=== PATIENT | female | born 1940 | race Caucasian/White ===

== ENCOUNTER 2018-03-28 19:20 | Inpatient (IN) | payer MEDICARE ==
--- NOTE | 2018-03-28 19:30 | ED ---
Chest Pain HPI - General Stated Complaint: LUCIANA Time Seen by Provider: 03/28/18 19:26 Source: RN notes reviewed, old records reviewed Mode of arrival: EMS Limitations: altered mental status - History of Present Illness Initial Comments: This is a 77-year-old female the ER for evaluation. Patient had level responsiveness by to bring into the emergency room, patient's brought in by EMS after passing out. Patient continues to have some altered mental status at this time. Per EMS patient's did give CPR, as EMS was arriving patient was becoming more responsive. Patient herself is complaining of chest pain anterior chest pain. He does have history of high blood pressure high cholesterol no prior VT MD Complaint: chest pain -: hour(s) (Chest pain is been existing all day) Onset: during rest, during exertion Pain Location: substernal Pain Radiation: none Severity scale (1-10): 2 Quality: aching, heaviness Consistency: constant Improves With: nothing Worsens With: nothing Anginal Symptoms: nausea, vomiting, diaphoresis Other Symptoms: syncope Treatments Prior to Arrival: CPR - Related Data Home Medications Medication Instructions Recorded Confirmed Aspirin 81 mg PO BID 03/28/18 03/28/18 Atorvastatin [Lipitor] 40 mg PO DAILY 03/28/18 03/28/18 Pgugaxlcwlhccu-TX-Cafaabninf 1 tab PO DAILY 03/28/18 03/28/18 [Folbic] Ergocalciferol (Vitamin D2) 50,000 unit PO WE 03/28/18 03/28/18 [Drisdol] Hydrochlorothiazide 25 mg PO DAILY 03/28/18 03/28/18 Levothyroxine Sodium [Synthroid] 100 mg PO DAILY 03/28/18 03/28/18 Losartan Potassium 100 mg PO DAILY 03/28/18 03/28/18 Metoprolol Succinate (ER) [Toprol 50 mg PO HS 03/28/18 03/28/18 XL] Allergies Allergy/AdvReac Type Severity Reaction Status Date / Time banana Allergy Unknown Verified 03/28/18 21:34 egg Allergy Swelling Verified 03/28/18 19:38 gentamicin Allergy Swelling Verified 03/30/18 09:13 Iodinated Contrast- Oral and Allergy Swelling Verified 03/30/18 07:25 IV Dye latex Allergy Rash/Hives Verified 03/28/18 21:34 Penicillins Allergy Rash/Hives Verified 03/28/18 19:38 etomidate AdvReac Unknown Verified 03/30/18 09:13 Sulfa (Sulfonamide AdvReac Unknown Verified 03/30/18 09:13 Antibiotics) maxide AdvReac Unknown Uncoded 03/30/18 09:13 Review of Systems ROS Statement: Those systems with pertinent positive or pertinent negative responses have been documented in the HPI. ROS Other: All systems not noted in ROS Statement are negative. EKG Findings - EKG Comments: EKG Findings:: EKG shows positive ST elevated VT. Patient does have elevation in aVR, as well as reciprocal and diffuse T-wave inversion and ST depression Course Vital Signs 03/28/18 03/28/18 03/28/18 19:28 19:29 19:30 Temperature 97.6 F Pulse Rate 77 76 Respiratory 16 18 28 H Rate Blood Pressure 151/81 151/81 O2 Sat by Pulse 98 72 L Oximetry 03/28/18 03/28/18 03/28/18 19:35 19:40 19:45 Temperature Pulse Rate 73 75 71 Respiratory 16 24 18 Rate Blood Pressure 167/84 162/93 155/78 O2 Sat by Pulse 99 Oximetry 03/28/18 03/28/18 03/28/18 19:50 19:55 20:00 Temperature Pulse Rate 72 73 76 Respiratory 20 14 17 Rate Blood Pressure 147/79 150/84 136/76 O2 Sat by Pulse 100 99 99 Oximetry 03/28/18 20:03 Temperature Pulse Rate 74 Respiratory 26 H Rate Blood Pressure 145/88 O2 Sat by Pulse 98 Oximetry - Reevaluation(s) Reevaluation #1: Medical record is reviewed and noncontributory Patient does have ST elevated VT, called patient upon patient arrival and EKG reveal CT did evaluate patient in the emergency room to take the [facility] Chest Pain MDM - MDM 77 female the ER for evaluation. Patient coming in for evaluation of chest pain. Patient be admitted with acute ST elevated VT taken to [facility] on urgent basis. Critical Care Time Critical Care Time: Yes Total Critical Care Time: 31 Disposition Clinical Impression: ST elevation myocardial infarction (STEMI) Disposition: ADMITTED IP TO THIS HOSP Condition: Serious Is patient prescribed a controlled substance at d/c from ED?: No
[2018-03-28] MEDS ORDERED: SODIUM CHLORIDE 0.9% 1,000 ML IV STA (19:37)
[2018-03-28] MEDS ORDERED: ASPIRIN 81 MG PO STA (19:37)
[2018-03-28] MEDS ORDERED: HEPARIN SODIUM,PORCINE 5,000 UNIT/ML 1 ML VIAL IV ONE (19:37)
[2018-03-28] MEDS ORDERED: HEPARIN SODIUM,PORCINE 5,000 UNIT/ML 1 ML VIAL IV PRN (19:37)
[2018-03-28] MEDS ORDERED: NITROGLYCERIN SL TABS 0.4 MG TAB SUBLINGUAL PRN ×2 (19:37→21:04)
[2018-03-28] MEDS ORDERED: methylPREDNISolone SOD SUCCI 125 MG/2 ML VIAL IV STA (19:53)
[2018-03-28] MEDS ORDERED: diphenhydrAMINE 50 MG/ML 1 ML VIAL IVP STA (19:53)
[2018-03-28 19:56] LABS: Glucose,Whole Blood 152 mg/dL (75-99)
[2018-03-28 19:58] LABS: Basophils % (A) 0 %; Eosinophils # (A) 0.1 k/uL (0-0.7); Eosinophils % (A) 1 %; HCT 41.7 % (34.0-46.0); HGB 13.6 gm/dL (11.4-16.0); Lymphocytes # (A) 1.6 k/uL (1.0-4.8); Lymphocytes % (A) 18 %; MCH 27.9 pg (25.0-35.0); MCHC 32.6 g/dL (31.0-37.0); MCV 85.5 fL (80.0-100.0); Mean Platelet Volume 6.9; Monocytes # (A) 0.3 k/uL (0-1.0); Monocytes % (A) 3 %; Neutrophils # (A) 6.8 k/uL (1.3-7.7); Neutrophils % (A) 76 %; Platelet Count 244 k/uL (150-450); RBC 4.87 m/uL (3.80-5.40); WBC 8.9 k/uL (3.8-10.6)
[2018-03-28] MEDS ORDERED: VERAPAMIL 2.5 MG/ML 2 ML AMP ONE (19:59)
[2018-03-28] MEDS ORDERED: LIDOCAINE 1% INJ 10MG/ML (20 ML MDV) ONE (19:59)
[2018-03-28] MEDS ORDERED: fentaNYL (PF) 50 MCG/ML 2 ML AMP ONE (19:59)
[2018-03-28 20:08] LABS: INR 0.9 (<1.2); Partial Thromboplastin Time 22.9 sec (22.0-30.0); Prothrombin Time 10.2 sec (9.0-12.0)
[2018-03-28] MEDS ORDERED: MIDAZOLAM 2 MG/2 ML VIAL IVP ONE (20:15)
[2018-03-28] MEDS ORDERED: fentaNYL (PF) 50 MCG/ML 2 ML AMP IVP ONE (20:15)
[2018-03-28 20:17] LABS: Albumin 4.3 g/dL (3.5-5.0); Calcium 9.3 mg/dL (8.4-10.2); Magnesium 1.8 mg/dL (1.6-2.3); Potassium 4.2 mmol/L (3.5-5.1); Total Bilirubin 0.6 mg/dL (0.2-1.3); Total Protein 7.4 g/dL (6.3-8.2)
--- NOTE | 2018-03-28 20:20 | XR ---
EXAMINATION TYPE: XR chest 1V portable DATE OF EXAM: 03/28/2018 COMPARISON: NONE HISTORY: Chest pain TECHNIQUE: Single frontal view of the chest is obtained. FINDINGS: Heart and mediastinum are normal. Lungs are clear. Diaphragm is normal. There are chest le ads. Bony thorax appears intact. IMPRESSION: Normal chest
[2018-03-28] MEDS ORDERED: LIDOCAINE 1% (PF) 10MG/ML VIAL SQ ONE (20:21)
[2018-03-28] MEDS: VERAPAMIL SYRINGE (5 MG/10 ML) INTRAARTER ONE ×2 (20:22→20:59)
[2018-03-28] MEDS ORDERED: BIVALIRUDIN BOLUS 250 MG/50 ML IV ONE (20:23)
[2018-03-28] MEDS ORDERED: IV FLUID CONTINUATION 350 ML IV ONE (20:25)
[2018-03-28] MEDS ORDERED: BIVALIRUDIN 250 MG in SODIUM CHLORIDE 0.9% 50 ML IV ONE (20:25)
[2018-03-28] MEDS ORDERED: CLOPIDOGREL 75 MG TAB ONE ×2 (20:33)
--- NOTE | 2018-03-28 20:34 | P.CRDCN ---
History of Present Illness History of present illness: This is Dr. Kerr dictating a consult on this patient The patient was interviewed and examined by me IMPRESSION / ASSESSMENT: Acute myocardial infarction with ST elevation in lead 3 and aVF as well as aVR and diffuse ST depression V2 through V6 and one in aVL consistent with global ischemia possibly left main or left main equivalent. Or an extremely large RCA with inferior posterior and lateral distribution resulting in a global ischemia picture Hypertension History of thyroid cancer status post surgery last year PLAN: Aspirin and antiplatelet therapy, IV heparin and metoprolol and urgent cardiac catheterization and antiplatelet therapy HPI She has been experiencing midsternal chest discomfort since about 10:00 this morning. She she was heading to [place] she didn't feel good she felt very nauseous and threw up and turned around and went home. She arrived in the emergency room just before 7:24 PM this evening and I was called by the ER physician stating that this lady had collapsed at home. She became extremely dizzy lightheaded and collapsed and her administered CPR. When EMS arrived she was still somewhat unconscious but her pulse has had returned When I saw in the emergency room she still had pain that she is feeling a lot better and the pain intensity and severity had reduced significantly. No radiation of this pain no back pain or arm pain or neck pain She is feeling a lot better and stating she had a lot of ALLERGIES including IV dye and eggs She is a patient of Dr. Rhianna Byrnes And Dr. Lita Pugh In October of this year she has had a stress test with a normal myocardial perfusion. I suppose if she had global ischemia this would not be readily detected. I don't have the actual report ROS: No fever chills or rigors, no cough, phlegm or expectoration, no nausea, vomiting or diarrhea, no hematuria, dysuria, no musculoskeletal complaints, no strokes or seizures, no skin lesions. EXAMINATION Blood pressure 148/86. His mercury pulse rate in the 70s No JVD no carotid bruits Heart sounds normal normal S1 normal S2 no murmurs no gallops Breath sounds are clear scratched at breath sounds are reduced bilaterally but no rhonchi no crackles Abdomen soft nontender External days are warm no edema REVIEW OF LABS, ECG Twelve-lead ECG shows sinus rhythm normal RI narrow QRS ST depression V1 through V6 and one in aVL with a subtle ST elevation in 3 and aVF are significant LDL elevation in aVR. 11 out of 12 leads are abnormal in the ST segments Past Medical History Past Medical History: CVA/TIA, Hyperlipidemia, Hypertension Additional Past Medical History / Comment(s): thyroid ca, sjogrens History of Any Multi-Drug Resistant Organisms: None Reported Past Psychological History: No Psychological Hx Reported Smoking Status: Never smoker Past Alcohol Use History: Daily Past Drug Use History: None Reported Medications and Allergies Allergies Allergy/AdvReac Type Severity Reaction Status Date / Time egg Allergy Swelling Verified 03/28/18 19:38 Penicillins Allergy Rash/Hives Verified 03/28/18 19:38 Physical Exam Vitals: Vital Signs Temp Pulse Resp BP Pulse Ox 03/28/18 20:00 76 17 136/76 99 03/28/18 19:55 73 14 150/84 99 03/28/18 19:50 72 20 147/79 100 03/28/18 19:45 71 18 155/78 99 03/28/18 19:40 75 24 162/93 03/28/18 19:35 73 16 167/84 03/28/18 19:30 28 H 151/81 72 L 03/28/18 19:29 97.6 F 76 18 151/81 98 03/28/18 19:28 77 16 Intake and Output 03/28/18 03/28/18 03/28/18 06:59 14:59 22:59 Other: Weight 90.8 kg Results 03/28/18 19:36 03/28/18 19:36 Cardiac Enzymes 03/28/18 Range/Units 19:36 AST 69 H (14-36) U/L Coagulation 03/28/18 Range/Units 19:36 PT 10.2 (9.0-12.0) sec APTT 22.9 (22.0-30.0) sec CBC 03/28/18 Range/Units 19:36 WBC 8.9 (3.8-10.6) k/uL RBC 4.87 (3.80-5.40) m/uL Hgb 13.6 (11.4-16.0) gm/dL Hct 41.7 (34.0-46.0) % Plt Count 244 (150-450) k/uL Comprehensive Metabolic Panel 03/28/18 Range/Units 19:36 Sodium 141 (137-145) mmol/L Potassium 4.2 (3.5-5.1) mmol/L Chloride 102 (98-107) mmol/L Carbon Dioxide 26 (22-30) mmol/L BUN 19 H (7-17) mg/dL Creatinine 1.02 (0.52-1.04) mg/dL Glucose 170 H (74-99) mg/dL Calcium 9.3 (8.4-10.2) mg/dL AST 69 H (14-36) U/L ALT 66 H (9-52) U/L Alkaline Phosphatase 91 (38-126) U/L Total Protein 7.4 (6.3-8.2) g/dL Albumin 4.3 (3.5-5.0) g/dL Current Medications Generic Name Dose Route Start Last Admin Trade Name Freq PRN Reason Stop Dose Admin Aspirin 325 mg 03/29/18 09:00 Aspirin PO DAILY [facility] Atorvastatin Calcium 80 mg 03/29/18 09:00 Lipitor PO DAILY [facility] Heparin Sodium (Porcine) 0 unit 03/28/18 19:37 Heparin IV Q6HR PRN Low PTT Protocol Heparin Sodium/Sodium Chloride 250 mls @ 10 mls/hr 03/28/18 19:45 25,000 unit/ Sodium Chloride IV .Q24H [facility] Protocol 11.014 UNITS/KG/HR Sodium Chloride 1,000 mls @ 100 mls/hr 03/28/18 19:37 Saline 0.9% IV 03/29/18 05:36 .Q10H [facility] Metoprolol Tartrate 25 mg 03/28/18 21:00 Lopressor PO BID [facility] Nitroglycerin 0.4 mg 03/28/18 19:37 Nitrostat SUBLINGUAL Q5M PRN Chest Pain Intake and Output 03/28/18 03/28/18 03/28/18 06:59 14:59 22:59 Other: Weight 90.8 kg Patient Weight 03/29/18 06:59 Weight 90.8 kg 03/28/18 19:36 03/28/18 19:36
[2018-03-28] MEDS ORDERED: CLOPIDOGREL 75 MG TAB PO ONE (20:40)
[2018-03-28 20:42] LABS: Creatine Kinase MB 3.4 ng/mL (0.0-2.4)
[2018-03-28] MEDS: NITROGLYCERIN 1000MCG/10ML SYRINGE INTRACORON ONE ×2 (20:42→20:56)
[2018-03-28] MEDS ORDERED: NITROGLYCERIN 1000MCG/10ML SYRINGE INTRACORON ONE ×2 (20:43→20:52)
[2018-03-28 20:46] LABS: Troponin I 0.172 ng/mL (0.000-0.034)
[2018-03-28] MEDS ORDERED: IOPAMIDOL-370 125ML BTL INJ ONE (20:50)
[2018-03-28] MEDS ORDERED: niCARdipine 25 MG/10 ML VIAL ONE (20:51)
[2018-03-28] MEDS: niCARdipine Syringe (1,000 mcg/10 mL) INTRACORON ONE ×2 (20:53→20:56)
[2018-03-28] MEDS ORDERED: IOPAMIDOL-370 100ML BTL INJ ONE (20:59)
[2018-03-28] MEDS ORDERED: ATROPINE SULFATE 0.1 MG/ML 10ML SYRINGE IV PRN (21:04)
[2018-03-28] MEDS ORDERED: RX INFO: IV CONTRAST WAS GIVEN 1 EACH MISC MISCELLANE PRN (21:04)
[2018-03-28] MEDS ORDERED: MAG HYDROX/AL HYDROX/SIMETH 30 ML CUP PO PRN (21:04)
[2018-03-28] MEDS ORDERED: ZOLPIDEM 5 MG TAB PO PRN (21:04)
[2018-03-28] MEDS ORDERED: SODIUM CHLORIDE 0.9% 1,000 ML IV SCH (21:15)
[2018-03-28 21:41] LABS: Glucose,Whole Blood 147 mg/dL (75-99)
--- NOTE | 2018-03-28 22:12 | LTR ---
DATE OF SERVICE: March 28, [address] Kerr: Ms. Halima Flores presented to [facility] with chest discomfort and was diagnosed with acute inferior ST-elevation myocardial infarction by Dr. Kerr. I did perform successful angioplasty and stenting of the left circumflex and she needs to have PCI of the right coronary artery as well. Thank you for allowing us to participate in her care and please do not hesitate to call with questions or concerns. Sincerely, MMSTEVE / JOELN: [id number] /
--- NOTE | 2018-03-28 22:12 | CC ---
CARDIAC CATHETERIZATION REPORT CARDIAC CATHETERIZATION AND PERCUTANEOUS CORONARY INTERVENTION: DATE OF SERVICE: March 28, 2018 PERFORMING PHYSICIAN: Bandar Ortega MD, last marker. PROCEDURE PERFORMED: 1. Selective right and left coronary angiogram. 2. Left heart catheterization. 3. Successful stenting of the mid left circumflex coronary artery using 3.0 x 23 mm Xience drug-eluting stent with an excellent angiographic results and reduction of stenosis from 100% to 0%. INDICATION: This is a pleasant 77-year-old female patient with history of hypertension, as well as history of stroke, who presented to the hospital with chest discomfort and ST-segment elevation most prominent in the inferior leads. Because of that, the patient was seen and evaluated by Dr. Kerr who recommended proceeding with an emergent heart catheterization. APPROACH: Right radial artery. COMPLICATION: None. LEVEL OF SEDATION: Moderate with sedation length of 42 minutes. Aorta balloon was 76 minutes. PROCEDURE DESCRIPTION: After obtaining an informed consent, the patient was brought to the cathode ray tube assembler. The right radial artery was cannulated using micropuncture technique and a micropuncture wire passed easily then I placed a 6-Pashto sheath in the right radial artery. I did give the patient 2 mg of verapamil IA and I started Angiomax on her as well. Subsequently I did selective right and left coronary angiogram using JR4 and JL3.5 catheters. Left heart catheterization was performed using the JR4 catheter which flipped into the LV then I did pullback across aortic valve. After that I did intervene on the left circumflex. Please see a separate paragraph for that. SELECTIVE CORONARY ANGIOGRAM: 1. The right coronary artery is a large caliber vessel. It is a dominant vessel as well. The RCA appeared proximally has mild disease only. In the midportion appeared to be angiographically normal. Distally bifurcates into PDA and PLV branches. The PDA branch appeared to be angiographically normal and the PLV branch appeared to have a lesion in the range of 70% to 80%. 2. The left main is angiographically normal. It bifurcates into the circumflex and left anterior descending artery. 3. The left circumflex is a large caliber vessel. It is a nondominant vessel. The proximal circumflex has mild disease only and gives rise into a large first OM branch which appeared to be angiographically normal. The mid circumflex is 100% occluded just after the bifurcation of the second OM branch which is a large caliber vessel, seems to be angiographically normal. 4. The LAD: The proximal LAD appeared to be angiographically normal. It gives rise into the first diagonal branch which appeared to have mild disease only. The mid and distal LAD appeared to be angiographically normal. HEMODYNAMICS: The left ventricular end-diastolic pressure was 12 mmHg without significant gradient across the aortic valve. PCI OF LEFT CIRCUMFLEX: Anticoagulation was initiated using Angiomax. Subsequently I did engage the left main using JL3.5 guide. A run-through wire was used to wire the left circumflex and cross the acute total occlusion in the midportion. I did balloon angioplasty initially using 3.0 x 12 mm balloon and subsequently 2 5 x 20 mm NC balloon. After that, I deployed a 3.0 x 23 mm Xience drug-eluting stent where the stent was positioned under fluoroscopy guidance and deployed under its nominal pressure. The following angiogram initially showed no reflow in the circumflex. After that and after giving the patient nitroglycerin IC as well as nicardipine IC, I was able to restore the flow to the left circumflex. The procedure was completed without any complication. CONCLUSION: 1. Acute anterior ST-elevation myocardial infarction. 2. Severe disease involving the distal right coronary artery. 3. Occluded left circumflex in the midportion. 4. Successful stenting of the mid left circumflex as described above. POSTPROCEDURE MANAGEMENT: 1. PCI of the RCA in the next few days. 2. Dual anti-platelet therapy. 3. Risk factor modifications. 4. High-intensity statin. 5. Anti-ischemic medication. 6. Follow up with the patient. MMSTEVE / JOELN: [id number] /
[2018-03-29] MEDS: METOPROLOL TARTRATE 25 MG TAB PO SCH ×3 (01:09→21:30)
[2018-03-29] MEDS: HEPARIN SOD,PORK IN 0.45% NACL 25,000 UNIT in 0.45% NACL 1 250ML.BAG IV SCH ×2 (01:14→20:08)
[2018-03-29] MEDS ORDERED: ALPRAZolam 0.25 MG TAB PO PRN (01:52)
[2018-03-29] MEDS ORDERED: TEMAZEPAM 15 MG CAP PO PRN (01:52)
[2018-03-29 02:04] LABS: Mean Platelet Volume 6.7; Platelet Count 223 k/uL (150-450)
[2018-03-29 02:20] LABS: Albumin 3.6 g/dL (3.5-5.0); Calcium 8.1 mg/dL (8.4-10.2); Potassium 3.5 mmol/L (3.5-5.1); Total Bilirubin 0.4 mg/dL (0.2-1.3); Total Protein 6.3 g/dL (6.3-8.2)
[2018-03-29 02:55] LABS: Creatine Kinase MB 43.2 ng/mL (0.0-2.4)
[2018-03-29 04:27] LABS: Troponin I 7.81 ng/mL (0.000-0.034)
[2018-03-29 04:52] LABS: T4, Free (Free Thyroxine) 1.71 ng/dL (0.78-2.19)
[2018-03-29] MEDS ORDERED: Potassium Replacement Protocol 1 EACH MISC MISCELLANE PRN (06:47)
[2018-03-29 07:14] LABS: Glucose,Whole Blood 152 mg/dL (75-99)
--- NOTE | 2018-03-29 07:55 | HP ---
HISTORY AND PHYSICAL DATE OF SERVICE: 03/28/2018 CHIEF COMPLAINTS: Chest pains. HISTORY OF PRESENT ILLNESS: This 77-year-old woman with a past medical history of multiple medical problems including CVA, TIA, hypertension, hyperlipidemia, thyroid cancer, Sjogren's, being followed by Dr. Kerr in the outpatient setting was complaining of chest pain which is felt as severe tightness across the anterior part of the chest, diffuse changes, ST elevation was noted and troponin of 0.172. Patient underwent cardiac catheterization and Dr. Ortega performed of the mid left circumflex coronary artery, further intervention also planned in the next couple of days and the patient being closely monitored in ICU at this time. Please refer to cardiac catheterization reports for further details. There is no history of fever, rigors or chills. No history of headache, loss of consciousness, seizures. PAST MEDICAL HISTORY: History of CVA, TIA, hypertension, hyperlipidemia, thyroid cancer, Sjogren syndrome. MEDICATIONS: Prior to admission include: 1. Metoprolol 50 mg q.h.s. 2. Losartan 100 mg p.o. daily. 3. Synthroid 100 mcg p.o. daily. 4. Hydrochlorothiazide 25 mg. 5. Vitamin D2 50,000 p.o. Thursday. 6. Folbic 1 p.o. daily. 7. Lipitor 40 mg. 8. Aspirin 81 mg p.o. b.i.d. ALLERGIES: BANANA, [QAMARKER] LATEX, PENICILLIN. FAMILY HISTORY: No history of heart disease or strokes in the family. SOCIAL HISTORY: No history of smoking or alcohol intake. REVIEW OF SYSTEMS: ENT: No diminished vision. No diminished hearing. CARDIOVASCULAR: As mentioned earlier. RESPIRATORY: As mentioned earlier. GI no nausea or vomiting. no dysuria. CENTRAL NERVOUS SYSTEM: No numbness or weakness. ALLERGY/IMMUNOLOGY: No asthma or hayfever. MUSCULOSKELETAL: As mentioned earlier. HEMATOLOGY/ONCOLOGY: As mentioned earlier. ENDOCRINE: Hypothyroidism. CONSTITUTIONAL: As mentioned earlier. Dermatology: Negative. Rheumatology: Negative. Psychiatry: As mentioned earlier. PHYSICAL EXAMINATION: GENERAL: The patient is alert and oriented times three. VITAL SIGNS: Pulse is 58, blood pressure is 120/70, respirations 13, temperature is normal. Pulse ox 97% on room air. HEENT: Conjunctivae normal. Oral mucosa moist. NECK is no jugular venous distention. No carotid bruit. No lymph node enlargement. CARDIOVASCULAR: S1, S2 muffled. No S3, no S4. RESPIRATORY: Breath sounds diminished in the bases. No rhonchi. No crackles. ABDOMEN: Soft, nontender. No mass palpable. LEGS: No edema. No swelling. NERVOUS SYSTEM: Higher functions as mentioned earlier. Moves all 4 limbs. No focal motor or sensory deficits. Lymphatics: No lymph nodes palpable in the neck, axillae or groin. SKIN: No ulcer, rash or bleeding. JOINTS: No active deforming arthropathy. LABS: CBC within normal limits. Sodium 140, potassium 4.2, glucose 152, AST 16, ALT 69, and troponin 0.172. ASSESSMENT: 1. Acute ST-segment elevation myocardial infarction status post cardiac catheterization and circumflex stenting. 2. Elevated AST, ALT, hepatitis of undetermined origin. 3. Bradycardia. 4. History of cerebrovascular accident/transient ischemic attack. 5. Hypertension. 6. Hyperlipidemia. 7. History of thyroid cancer. 8. History of Sjogren's syndrome. RECOMMENDATIONS AND DISCUSSION: In this 77-year-old woman who presented with multiple complex medical issues, at this time, I recommend to continue the current medications, management and symptomatic treatment. Recommend continue with dual antiplatelet treatment as well as beta blockers. Repeat labs especially because of the elevated LFTs, the exact etiology is unknown at this time. We will continue to monitor. The patient has also been started on high-dose statins at this time. Overall prognosis extremely guarded because of multiple complex medical issues. Patient being closely monitored in ICU at this time. Further recommendations to follow. Copy of this dictation forwarded to Dr. Kerr, who is the primary physician. Medication reconciliation done. DATE OF SERVICE: Note dated date of 03/28/2018 thanks thank. MMODL / IJN: [id number] / JONI
[2018-03-29] MEDS: INSULIN ASPART 100 UNIT/ML 1 ML 10 ML VIAL SQ SCH ×4 (08:14→21:02)
[2018-03-29] MEDS: POTASSIUM CHLORIDE ER 20 MEQ TAB.ER PO SCH ×2 (08:28→12:56)
[2018-03-29] MEDS: PANTOPRAZOLE 40 MG TABLET PO SCH (08:28)
[2018-03-29] MEDS: ATORVASTATIN 80 MG TAB PO SCH (08:29)
[2018-03-29] MEDS: ASPIRIN 81 MG PO SCH (08:29)
[2018-03-29] MEDS: CYANOCOBALAMIN-FA-PYRIDOXINE 1 EACH TAB PO SCH (08:29)
[2018-03-29] MEDS: CLOPIDOGREL 75 MG TAB PO SCH (08:29)
[2018-03-29] MEDS: LEVOTHYROXINE 100 MCG TAB PO SCH (08:29)
[2018-03-29] MEDS ORDERED: ASPIRIN 325 MG TAB PO SCH (09:00)
[2018-03-29] MEDS ORDERED: ATORVASTATIN 80 MG TAB PO SCH (09:00)
[2018-03-29 11:51] LABS: Glucose,Whole Blood 137 mg/dL (75-99)
[2018-03-29 12:56] VITALS: BMI 37.3
--- NOTE | 2018-03-29 14:24 | P.PN ---
Subjective Patient is doing well. No chest discomfort dizziness lightheadedness at test discomfort is completely gone She had an occluded left circumflex which was stented. She also has an occluded distal RCA and we will schedule for Emre stenting tomorrow. She has significant 2 vessel coronary artery disease. The OM was the culprit vessel but she has significant disease in the RCA and had 2 vessel coronary artery disease probably contributed to the global ischemia that was evident on her initial ECG with inferior wall ST segment elevation Pulse rate in the 50s, temperature 98.2 Blood pressure 115/60 mmHg normal respirations Normal heart sounds no murmurs no gallops. Breath sounds are clear no rhonchi no crackles Extent is warm no edema Impression Acute myocardial infarction with global ischemia secondary to 2 vessel significant coronary artery disease with complete occlusion of the OM branch and greater than 80% stenosis in the distal RCA Plan Continue current medications included dual antiplatelet therapy and prepare for repeat coronary stenting stent of the RCA tomorrow Objective - Vital Signs Vital signs: Vital Signs Temp 98.2 F 03/29/18 12:00 Pulse 58 L 03/29/18 14:00 Resp 15 03/29/18 14:00 BP 115/60 03/29/18 14:00 Pulse Ox 97 03/29/18 14:00 Intake & Output 03/28/18 03/29/18 03/29/18 18:59 06:59 18:59 Intake Total 935 1300 Output Total 2 Balance 935 1298 Weight 90.8 kg 89.5 kg Intake: IV 935 700 Sodium Chloride 0.9% 1, 600 700 000 ml @ 100 mls/hr IV . Q10H [facility] Rx#:[id number] Oral 600 Output: Urine 2 Other: Voiding Method Bedside Commode Bedside Commode # Voids 2 # Bowel Movements 1 - Labs CBC & Chem 7: 03/29/18 01:46 03/29/18 01:46 Labs: Abnormal Lab Results - Last 24 Hours (Table) 03/28/18 03/28/18 03/28/18 Range/Units 19:36 19:36 19:36 APTT (22.0-30.0) sec Sodium (137-145) mmol/L BUN 19 H (7-17) mg/dL Glucose 170 H (74-99) mg/dL POC Glucose (mg/dL) 152 H (75-99) mg/dL Calcium (8.4-10.2) mg/dL AST 69 H (14-36) U/L ALT 66 H (9-52) U/L Total Creatine Kinase 269 H (30-135) U/L CK-MB (CK-2) 3.4 H (0.0-2.4) ng/mL Troponin I 0.172 H* (0.000-0.034) ng/mL TSH (0.465-4.680) mIU/L 03/28/18 03/29/18 03/29/18 Range/Units 21:38 01:46 01:46 APTT 30.5 H (22.0-30.0) sec Sodium (137-145) mmol/L BUN (7-17) mg/dL Glucose (74-99) mg/dL POC Glucose (mg/dL) 147 H (75-99) mg/dL Calcium (8.4-10.2) mg/dL AST (14-36) U/L ALT (9-52) U/L Total Creatine Kinase 690 H (30-135) U/L CK-MB (CK-2) 43.2 H (0.0-2.4) ng/mL Troponin I 7.810 H* (0.000-0.034) ng/mL TSH (0.465-4.680) mIU/L 03/29/18 03/29/18 03/29/18 Range/Units 01:46 07:10 11:49 APTT (22.0-30.0) sec Sodium 136 L (137-145) mmol/L BUN 18 H (7-17) mg/dL Glucose 232 H (74-99) mg/dL POC Glucose (mg/dL) 152 H 137 H (75-99) mg/dL Calcium 8.1 L (8.4-10.2) mg/dL AST 82 H (14-36) U/L ALT 58 H (9-52) U/L Total Creatine Kinase (30-135) U/L CK-MB (CK-2) (0.0-2.4) ng/mL Troponin I (0.000-0.034) ng/mL TSH 0.059 L (0.465-4.680) mIU/L
--- NOTE | 2018-03-29 15:19 | ECHOF ---
Referral Reason:stemi MEASUREMENTS -------- HEIGHT: 154.9 cm WEIGHT: 90.7 kg BP: 121/63 IVSd: 1.3 cm (0.6 - 1.1) LVIDd: 3.9 cm (3.9 - 5.3) LVPWd: 1.3 cm (0.6 - 1.1) IVSs: 1.6 cm LVIDs: 2.6 cm LVPWs: 1.5 cm LA Diam: 3.4 cm (2.7 - 3.8) RVIDd: 2.9 cm (< 3.3) LAESV Index (A-L): 24.36 ml/m Ao Diam: 3.2 cm (2.0 - 3.7) AV Cusp: 2.2 cm (1.5 - 2.6) EPSS: 0.1 cm RAP: 5.00 mmHg RVSP: 31.33 mmHg MV EF SLOPE: 46.63 mm/s (70 - 150) MV EXCURSION: 11.84 mm (> 18.000) FINDINGS -------- Sinus rhythm. This was a technically adequate study. The left ventricular size is normal. There is mild concentric left ventricular hypertrophy. Overa ll left ventricular systolic function is normal with, an EF between 60 - 65 %. The right ventricle is normal in size. Normal LA size by volume 22+/-6 ml/m2. The right atrium is normal in size. There is mild aortic valve sclerosis. Mild mitral annular calcification present. There is trace mitral regurgitation. Mild tricuspid regurgitation present. Right ventricular systolic pressure is normal at < 35 mmHg. Trace/mild (physiologic) pulmonic regurgitation. The aortic root size is normal. IVC Not well visulized. There is no pericardial effusion. CONCLUSIONS -------- 1. Sinus rhythm. 2. This was a technically adequate study. 3. The left ventricular size is normal. 4. There is mild concentric left ventricular hypertrophy. 5. Overall left ventricular systolic function is normal with, an EF between 60 - 65 %. 6. The right ventricle is normal in size. 7. Normal LA size by volume 22+/-6 ml/m2. 8. The right atrium is normal in size. 9. There is mild aortic valve sclerosis. 10. Mild mitral annular calcification present. 11. There is trace mitral regurgitation. 12. Mild tricuspid regurgitation present. 13. Right ventricular systolic pressure is normal at < 35 mmHg. 14. Trace/mild (physiologic) pulmonic regurgitation. 15. The aortic root size is normal. 16. IVC Not well visulized. 17. There is no pericardial effusion. PATIENT APPOINTMENT COORDINATOR: Yuliya Banegas RDCS
[2018-03-29 17:09] LABS: Glucose,Whole Blood 98 mg/dL (75-99)
--- NOTE | 2018-03-29 18:36 | PN ---
PROGRESS NOTE DATE OF SERVICE: 03/29/2018 This 77-year-old woman who was admitted with acute ST-segment elevation myocardial infarction, had cardiac cath and stenting of the circumflex. The patient is slated to have a repeat cardiac cath tomorrow. The patient closely monitored in the ICU. 2D echo with Doppler showed ejection fraction 60 to 65% and mild valvular abnormalities. There was no chest pain. No palpitations. PAST MEDICAL HISTORY: Reviewed. REVIEW OF SYSTEMS: CARDIOVASCULAR SYSTEM: No angina or palpitations. RESPIRATION: As mentioned earlier. GI as mentioned earlier. no dysuria. CENTRAL NERVOUS SYSTEM: No numbness or weakness. CURRENT MEDICATIONS: Reviewed and include: 1. Maalox p.r.n. 2. Xanax 0.25 t.i.d. 3. Aspirin 81 mg p.o. daily. 4. Lipitor 80 mg p.o. daily. 5. Atrovent 0.5 mg once p.r.n. 6. Plavix 75 mg daily. 7. Vitamin B. 8. Folbic. 9. Heparin IV. 10.NovoLog. 11.Synthroid 100 mcg p.o. daily. 12.KCl. 13.Protonix. 15.Ambien. PHYSICAL EXAMINATION: Alert and oriented x3. Pulse 60. Blood pressure is 118/58, respiration 20, temperature 98.4, pulse ox 98% on room air. HEENT: Conjunctivae normal. NECK: No jugular venous distention. CARDIOVASCULAR: S1, S2 muffled. RESPIRATORY: Breath sounds diminished in the bases. A few scattered rhonchi. No crackles. ABDOMEN: Soft, nontender. Legs are no edema. No swelling. CENTRAL NERVOUS SYSTEM: No focal deficits. LABORATORY DATA: Sodium 130, potassium 3.5, otherwise AST is 82, ALT is 58. Troponin 7.810 and TSH 0.59, free T4 is normal at 1.71. ASSESSMENT: 1. Acute ST-segment elevation myocardial infarction status post cardiac catheterization and circumflex stenting. 2. Elevated AST/ALT hepatitis of undetermined origin. 3. Bradycardia. 4. History of cerebrovascular accident, transient ischemic attack. 5. Hypertension. 6. Hyperlipidemia. 7. History of thyroid cancer. 8. History of Sjogren syndrome. 9. Mild hyponatremia. RECOMMENDATIONS AND DISCUSSION: Recommend to continue current medications, management and symptomatic treatment. Otherwise, at this time, repeat labs. Cardiac catheter per Cardiology. We will continue to monitor. Prognosis guarded because of multiple complex medical issues and further recommendations to follow. See orders for details. MMODL / IJN: [id number] / JONI
[2018-03-29 20:39] LABS: Glucose,Whole Blood 84 mg/dL (75-99)
[2018-03-30 05:29] LABS: Basophils % (A) 0 %; Eosinophils # (A) 0.1 k/uL (0-0.7); Eosinophils % (A) 1 %; HCT 32.7 % (34.0-46.0); Lymphocytes # (A) 2.1 k/uL (1.0-4.8); Lymphocytes % (A) 19 %; MCH 28.4 pg (25.0-35.0); MCHC 32.5 g/dL (31.0-37.0); MCV 87.3 fL (80.0-100.0); Monocytes # (A) 0.6 k/uL (0-1.0); Monocytes % (A) 5 %; Neutrophils # (A) 8.1 k/uL (1.3-7.7); Neutrophils % (A) 74 %; Platelet Count 193 k/uL (150-450); RBC 3.75 m/uL (3.80-5.40); RDW 14.5 % (11.5-15.5)
[2018-03-30 05:39] LABS: Albumin 2.8 g/dL (3.5-5.0); Calcium 7.8 mg/dL (8.4-10.2); Total Bilirubin 0.4 mg/dL (0.2-1.3); Total Protein 5.4 g/dL (6.3-8.2)
[2018-03-30 05:58] LABS: HGB 10.6 gm/dL (11.4-16.0)
[2018-03-30] MEDS: LEVOTHYROXINE 100 MCG TAB PO SCH (06:39)
[2018-03-30] MEDS: INSULIN ASPART 100 UNIT/ML 1 ML 10 ML VIAL SQ SCH ×3 (06:45→17:09)
[2018-03-30 07:08] LABS: Glucose,Whole Blood 86 mg/dL (75-99)
[2018-03-30] MEDS: ATORVASTATIN 80 MG TAB PO SCH (09:13)
[2018-03-30] MEDS: PANTOPRAZOLE 40 MG TABLET PO SCH (09:14)
[2018-03-30] MEDS: ASPIRIN 81 MG PO SCH (09:14)
[2018-03-30] MEDS: CYANOCOBALAMIN-FA-PYRIDOXINE 1 EACH TAB PO SCH (09:14)
[2018-03-30] MEDS: METOPROLOL TARTRATE 25 MG TAB PO SCH ×2 (09:14→22:41)
[2018-03-30] MEDS: CLOPIDOGREL 75 MG TAB PO SCH (09:14)
[2018-03-30] MEDS ORDERED: diphenhydrAMINE 50 MG/ML 1 ML VIAL IVP STA (09:41)
[2018-03-30] MEDS ORDERED: LIDOCAINE 1% INJ 10MG/ML (20 ML MDV) ONE (12:38)
[2018-03-30] MEDS ORDERED: VERAPAMIL 2.5 MG/ML 2 ML AMP ONE (12:40)
[2018-03-30 12:47] LABS: Glucose,Whole Blood 70 mg/dL (75-99)
[2018-03-30] MEDS ORDERED: methylPREDNISolone SOD SUCCI 125 MG/2 ML VIAL ONE (13:04)
[2018-03-30] MEDS ORDERED: diphenhydrAMINE 50 MG/ML 1 ML VIAL IVP ONE (13:13)
[2018-03-30] MEDS ORDERED: IV FLUID CONTINUATION 600 ML IV ONE (13:14)
[2018-03-30] MEDS ORDERED: methylPREDNISolone SOD SUCCI 125 MG/2 ML VIAL IVP ONE (13:14)
[2018-03-30] MEDS ORDERED: LIDOCAINE 1% INJ 10MG/ML (20 ML MDV) SQ ONE (13:29)
[2018-03-30] MEDS ORDERED: BIVALIRUDIN BOLUS 250 MG/50 ML IV ONE (13:32)
[2018-03-30] MEDS ORDERED: BIVALIRUDIN 250 MG in SODIUM CHLORIDE 0.9% 50 ML IV ONE (13:32)
[2018-03-30] MEDS ORDERED: CLOPIDOGREL 75 MG TAB PO ONE (13:32)
[2018-03-30] MEDS ORDERED: CLOPIDOGREL 75 MG TAB ONE (13:33)
[2018-03-30] MEDS: NITROGLYCERIN 1000MCG/10ML SYRINGE INTRACORON ONE ×3 (13:44→13:55)
[2018-03-30] MEDS ORDERED: IOPAMIDOL-370 125ML BTL INJ ONE ×2 (13:55)
[2018-03-30] MEDS ORDERED: ATROPINE SULFATE 0.1 MG/ML 10ML SYRINGE IV ONE (14:01)
[2018-03-30] MEDS ORDERED: IOPAMIDOL-370 100ML BTL INJ ONE ×2 (14:02)
[2018-03-30] MEDS ORDERED: NITROGLYCERIN SL TABS 0.4 MG TAB SUBLINGUAL PRN (14:20)
[2018-03-30] MEDS ORDERED: ATROPINE SULFATE 0.1 MG/ML 10ML SYRINGE IV PRN (14:20)
[2018-03-30] MEDS ORDERED: ZOLPIDEM 5 MG TAB PO PRN (14:20)
[2018-03-30] MEDS ORDERED: RX INFO: IV CONTRAST WAS GIVEN 1 EACH MISC MISCELLANE PRN (14:20)
[2018-03-30] MEDS ORDERED: MAG HYDROX/AL HYDROX/SIMETH 30 ML CUP PO PRN (14:20)
[2018-03-30] MEDS ORDERED: SODIUM CHLORIDE 0.9% 1,000 ML IV SCH (14:30)
--- NOTE | 2018-03-30 15:14 | LTR ---
DATE OF SERVICE: March 30, [address] Kerr: Ms. Halima Flores underwent successful stenting of the right coronary artery with good angiographic results and without any complication. Thank you for allowing us to participate in her care and please do not hesitate to call us with any questions or concerns. Sincerely, MMODL / IJN: [id number] /
[2018-03-30 17:16] LABS: Glucose,Whole Blood 99 mg/dL (75-99)
[2018-03-30] MEDS: HEPARIN SOD,PORK IN 0.45% NACL 25,000 UNIT in 0.45% NACL 1 250ML.BAG IV SCH (22:05)
[2018-03-30 22:10] LABS: Glucose,Whole Blood 232 mg/dL (75-99)
[2018-03-31] MEDS: INSULIN ASPART 100 UNIT/ML 1 ML 10 ML VIAL SQ SCH ×5 (00:34→22:50)
[2018-03-31 05:15] LABS: Basophils % (A) 0 %; Eosinophils # (A) 0.1 k/uL (0-0.7); Eosinophils % (A) 1 %; HCT 32.5 % (34.0-46.0); HGB 10.5 gm/dL (11.4-16.0); Lymphocytes # (A) 1.1 k/uL (1.0-4.8); Lymphocytes % (A) 9 %; MCH 28.1 pg (25.0-35.0); MCHC 32.4 g/dL (31.0-37.0); MCV 86.8 fL (80.0-100.0); Mean Platelet Volume 7.2; Monocytes # (A) 0.4 k/uL (0-1.0); Monocytes % (A) 4 %; Neutrophils # (A) 9.5 k/uL (1.3-7.7); Neutrophils % (A) 85 %; Platelet Count 189 k/uL (150-450); RBC 3.75 m/uL (3.80-5.40); RDW 14.4 % (11.5-15.5); WBC 11.2 k/uL (3.8-10.6)
[2018-03-31 05:26] LABS: Albumin 3.2 g/dL (3.5-5.0); Total Bilirubin 0.4 mg/dL (0.2-1.3); Total Protein 5.8 g/dL (6.3-8.2)
[2018-03-31] MEDS: LEVOTHYROXINE 100 MCG TAB PO SCH (06:05)
[2018-03-31 07:00] LABS: Glucose,Whole Blood 112 mg/dL (75-99)
--- NOTE | 2018-03-31 07:15 | PN ---
PROGRESS NOTE DATE OF SERVICE: 03/30/2018 This 77-year-old woman who was admitted after ST-segment elevation myocardial infarction had initially cardiac catheterization and circumflex stenting. Today the patient had successful stenting of the RCA with good angiographic result by Dr. Ortega. No chest pain. No palpitations. No fever. PHYSICAL EXAMINATION: On exam, alert and oriented x3. Pulse is 62, blood pressure 129/59, respiration 17, temperature normal, pulse ox 95% on room air. HEENT: Conjunctivae normal. NECK: No JVD. CARDIOVASCULAR: S1, S2 muffled. RESPIRATORY: Breath sounds diminished at the bases. No rhonchi, no crackles. ABDOMEN: Soft, nontender. LEGS: No edema. No swelling. NERVOUS SYSTEM: No focal deficits. LABS: WBC 11, hemoglobin 10.6. ASSESSMENT: 1. Acute ST-segment elevation myocardial infarction, status post cardiac catheterization and circumflex stenting and as well as RCA stenting. 2. Elevated AST, ALT hepatitis of undetermined origin. 3. Bradycardia. 4. History of cerebrovascular accident , transient ischemic attack. 5. Hypertension. 6. Hyperlipidemia. 7. History of thyroid cancer. 8. History of Sjogren syndrome. 9. Mild hyponatremia. RECOMMENDATIONS AND DISCUSSION: Recommend to continue current medications. Continued with monitoring and symptomatic treatment. AST, ALT has improved. Otherwise, continue the rest of medications. Monitor blood sugars closely. There is some oozing at the site. Closely follow with Cardiology. Further recommendations to follow. MMODL / IJN: [id number] /
[2018-03-31] MEDS: PANTOPRAZOLE 40 MG TABLET PO SCH (07:56)
[2018-03-31] MEDS: ASPIRIN 81 MG PO SCH (08:02)
[2018-03-31] MEDS: CLOPIDOGREL 75 MG TAB PO SCH (08:02)
[2018-03-31] MEDS: METOPROLOL TARTRATE 25 MG TAB PO SCH ×2 (08:02→19:57)
[2018-03-31] MEDS: ATORVASTATIN 80 MG TAB PO SCH (08:02)
[2018-03-31] MEDS: CYANOCOBALAMIN-FA-PYRIDOXINE 1 EACH TAB PO SCH (08:02)
--- NOTE | 2018-03-31 08:36 | PTCA ---
PERCUTANEOUSTRANS CORORONARY ANGIOGRAPHY DATE OF SERVICE: March 30, 2018 PERFORMING PHYSICIAN: Bandar Ortega MD, account manager employee benefits. PROCEDURE PERFORMED: Successful stenting of the distal right coronary artery using 3.0 x 18 mm Xience drug- eluting stent with reduction of stenosis from 80% to 0%. INDICATIONS: This is a pleasant 77-year-old female patient who presented to the hospital a few days ago with acute coronary event and was found to have an acutely occluded left circumflex, which was opened and stented with good results. 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 She was brought today to undergo a PCI of the right coronary artery. APPROACH: Right common femoral artery. COMPLICATION: None. LEVEL OF SEDATION: Moderate with sedation length of 60 minutes. PROCEDURE DESCRIPTION: After obtaining an informed consent, the patient was brought to cardiac ear mold laboratory technician. The right common femoral artery was cannulated using micropuncture technique, the micropuncture wire passed easily then I placed a 6-Surinamese sheath in the right common femoral artery. After that, I did attempt to engage the right using JR4 guide, but I was unable. Then I was able to engage the right using Duarte jara. Subsequently I did wire the right using a run-through wire. I did balloon angioplasty using 2.5 x 12 mm balloon then I deployed 3.0 x 18 mm Xience drug-eluting stent with the stent was positioned under fluoroscopy guidance and deployed under 12 atmospheres for 20 seconds with the following angiogram showing good angiographic results and the procedure was completed without any complication. By the end of the procedure, I saw some haziness in the posterior right coronary artery which has a posterior takeoff. Because of that, I did reengage the right coronary artery using JR4 5-Surinamese and I did do an angiogram which showed normal ostia right. POSTPROCEDURE MANAGEMENT: 1. Dual anti-platelet therapy. 2. Risk factor modifications. 3. Follow up with the patient. MMODL / IJN: [id number] /
[2018-03-31] MEDS ORDERED: ERGOCALCIFEROL 50,000 UNIT CAP PO SCH (09:00)
--- NOTE | 2018-03-31 09:12 | P.PN ---
Subjective Halima is doing well. She denies any chest discomfort dizziness lightheadedness. She has some bleeding from the groins last evening but today her groins have healed well as no hematoma minimal tenderness Pulse rate in the 60s blood pressure 131/79 mmHg normal respirations no respiratory distress no orthopnea Breath sounds are clear no rhonchi no crackles Heart sounds S1 and S2 normal no murmurs or gallops or rub Extremity is warm no edema Impression Patient presented with acute myocardial infarction, ST elevation. She underwent stenting of the culprit lesion upon admission,, left circumflex territory She also has significant lesion the distal RCA which is contributing to the global ischemia that is evident on 12-lead ECG upon admission. Yesterday she underwent coronary stenting of this. She is doing well vitals are stable and we will continue with her cardiac management and hopefully possibly discharge her tomorrow She has a primary purification director at [facility] Dr. Rhianna Byrnes Objective - Vital Signs Vital signs: Vital Signs Temp 98.0 F 03/31/18 08:00 Pulse 65 03/31/18 08:00 Resp 18 03/31/18 08:00 BP 131/79 03/31/18 08:00 Pulse Ox 97 03/31/18 08:00 Intake & Output 03/30/18 03/31/18 03/31/18 18:59 06:59 18:59 Intake Total 707.6 300 0 Output Total 800 2050 0 Balance -92.4 -1750 0 Weight 89.6 kg Intake: IV 707.6 100 0 Sodium Chloride 0.9% 1, 400 100 0 000 ml @ 100 mls/hr IV . Q10H [facility] Rx#:[id number] Sodium Chloride 0.9% 1, 100 000 ml @ 100 mls/hr IV . Q10H [facility] Rx#:[id number] Sodium Chloride 0.9% at 100 KVO for carrier Intake, IV Titration 200 Amount Heparin Sod,Pork in 0.45% 200 NaCl 25,000 unit In 0.45 % NaCl 1 250ml.bag @ 11. 014 UNITS/KG/HR 10 mls/hr IV .Q24H [facility] Rx#: [id number] Output: Urine 800 2050 0 Other: Voiding Method Toilet Toilet # Voids 1 1 # Bowel Movements 1 - Labs CBC & Chem 7: 03/31/18 05:04 03/31/18 05:04 Labs: Abnormal Lab Results - Last 24 Hours (Table) 03/30/18 03/30/18 03/31/18 Range/Units 12:35 22:08 05:04 WBC 11.2 H (3.8-10.6) k/uL RBC 3.75 L (3.80-5.40) m/uL Hgb 10.5 L (11.4-16.0) gm/dL Hct 32.5 L (34.0-46.0) % Neutrophils # 9.5 H (1.3-7.7) k/uL Chloride (98-107) mmol/L BUN (7-17) mg/dL Glucose (74-99) mg/dL POC Glucose (mg/dL) 70 L 232 H (75-99) mg/dL Calcium (8.4-10.2) mg/dL AST (14-36) U/L ALT (9-52) U/L Total Protein (6.3-8.2) g/dL Albumin (3.5-5.0) g/dL 03/31/18 03/31/18 Range/Units 05:04 06:58 WBC (3.8-10.6) k/uL RBC (3.80-5.40) m/uL Hgb (11.4-16.0) gm/dL Hct (34.0-46.0) % Neutrophils # (1.3-7.7) k/uL Chloride 110 H (98-107) mmol/L BUN 19 H (7-17) mg/dL Glucose 113 H (74-99) mg/dL POC Glucose (mg/dL) 112 H (75-99) mg/dL Calcium 8.0 L (8.4-10.2) mg/dL AST 64 H (14-36) U/L ALT 53 H (9-52) U/L Total Protein 5.8 L (6.3-8.2) g/dL Albumin 3.2 L (3.5-5.0) g/dL
[2018-03-31 12:02] LABS: Glucose,Whole Blood 65 mg/dL (75-99)
[2018-03-31 16:36] LABS: Glucose,Whole Blood 90 mg/dL (75-99)
--- NOTE | 2018-03-31 17:02 | PN ---
PROGRESS NOTE DATE OF SERVICE: 03/31/2018 This 77-year-old woman who was admitted with acute HB-wfgywzn-yxswuaekn myocardial infarction had cardiac catheterization of the circumflex as well as RCA. No chest pain. No palpitations. No fever. Minimal oozing from the left groin is noted. PHYSICAL EXAMINATION: Alert and oriented x3. Pulse 60, blood pressure 97/49, respiration 20, temperature 98.0, pulse ox 94% on room air. HEENT: Conjunctivae normal. NECK: No jugular venous distention. CARDIOVASCULAR SYSTEM: S1, S2 muffled. RESPIRATORY SYSTEM: Breath sounds diminished at the bases. A few scattered rhonchi and crackles. ABDOMEN: Soft, non-tender. LEGS: No edema. No swelling. NERVOUS SYSTEM: No focal deficit. LABS: WBC 11.2, hemoglobin 10.5, sodium 139, potassium 4. AST 64, ALT is 53. ASSESSMENT: 1. Acute HY-rtxmpby-nnmydtcyl myocardial infarction, status post cardiac catheterization and circumflex stenting as well as right coronary artery stenting. 2. Increased AST, ALT; hepatitis of undetermined origin. 3. Bradycardia. 4. History of cerebrovascular accident, transient ischemic attack. 5. Hypertension. 6. Hyperlipidemia. 7. History of thyroid cancer. 8. History Sjogren's. 9. History of mild hyponatremia. RECOMMENDATIONS AND DISCUSSION: In this 77-year-old woman who presented with multiple complex medical issues, we will monitor the patient closely, continue the current management, continue with symptomatic treatment. We will continue with dual antiplatelet medications. Otherwise, continue the rest of the medications. Continue with beta blockers. Continue with Lipitor. Monitor labs closely. Guarded prognosis because of multiple complex medical issues. Further recommendations to follow. MMODL / IJN: [id number] /
[2018-03-31 21:01] LABS: Glucose,Whole Blood 88 mg/dL (75-99)
[2018-04-01 05:53] LABS: Glucose,Whole Blood 82 mg/dL (75-99)
[2018-04-01] MEDS: INSULIN ASPART 100 UNIT/ML 1 ML 10 ML VIAL SQ SCH ×2 (06:31→12:18)
[2018-04-01] MEDS: LEVOTHYROXINE 100 MCG TAB PO SCH (06:35)
[2018-04-01] MEDS: PANTOPRAZOLE 40 MG TABLET PO SCH (06:35)
[2018-04-01 07:44] LABS: Basophils # (A) 0.1 k/uL (0-0.2); Basophils % (A) 1 %; Eosinophils # (A) 0.2 k/uL (0-0.7); Eosinophils % (A) 2 %; HGB 11.3 gm/dL (11.4-16.0); Lymphocytes # (A) 2.7 k/uL (1.0-4.8); Lymphocytes % (A) 29 %; MCH 28.4 pg (25.0-35.0); MCHC 32.4 g/dL (31.0-37.0); MCV 87.7 fL (80.0-100.0); Mean Platelet Volume 6.5; Monocytes # (A) 0.4 k/uL (0-1.0); Monocytes % (A) 5 %; Neutrophils # (A) 5.7 k/uL (1.3-7.7); Neutrophils % (A) 62 %; Platelet Count 197 k/uL (150-450); RBC 3.99 m/uL (3.80-5.40); RDW 14.5 % (11.5-15.5); WBC 9.1 k/uL (3.8-10.6)
[2018-04-01 07:53] LABS: Albumin 3.4 g/dL (3.5-5.0); Calcium 8.5 mg/dL (8.4-10.2); Potassium 4.3 mmol/L (3.5-5.1); Total Bilirubin 0.8 mg/dL (0.2-1.3); Total Protein 6.3 g/dL (6.3-8.2)
[2018-04-01] MEDS: CLOPIDOGREL 75 MG TAB PO SCH (08:53)
[2018-04-01] MEDS: ATORVASTATIN 80 MG TAB PO SCH (08:53)
[2018-04-01] MEDS: METOPROLOL TARTRATE 25 MG TAB PO SCH (08:54)
[2018-04-01] MEDS: CYANOCOBALAMIN-FA-PYRIDOXINE 1 EACH TAB PO SCH (08:54)
[2018-04-01] MEDS: ASPIRIN 81 MG PO SCH (08:54)
[2018-04-01 10:33] VITALS: RESP 20
[2018-04-01 11:53] VITALS: BP 136/85; PULSE 52; TEMP 98
--- NOTE | 2018-04-01 12:01 | US ---
EXAMINATION TYPE: US lower ext pseudo artery RT DATE OF EXAM: 04/01/2018 COMPARISON: NONE CLINICAL HISTORY: assess for pseudoaneurysm; post right groin cardiac catheterization 03/30/18 and ec chymosis is noted medial right groin; angio seal per patient. EXAM PERFORMED: Grayscale and color Doppler duplex imaging performed of the groin, post cardiac nayeli ter to assess for pseudoaneurysm. SIDE PERFORMED: right Color and Waveform Doppler performed to assess for the presence of pseudoaneurysm; Is there ultrasound evidence of a pseudoaneurysm: no Is there evidence of AV shunting: no Is there a fluid collection present: no IMPRESSION: No sonographic evidence of pseudoaneurysm within the right groin.
[2018-04-01 12:13] LABS: Glucose,Whole Blood 87 mg/dL (75-99)
--- NOTE | 2018-04-01 12:32 | P.PN ---
Subjective Progress Note Date: 04/01/18 This is a 77-year-old female who presented to the hospital with an ST elevation myocardial infarction, she underwent angioplasty and stenting of the circumflex with staged angioplasty of the distal right coronary artery. Patient was seen and examined this morning, she had some oozing from her groin through the night last night, there was suspicion of possible hematoma. Her groin actually felt soft this morning, mildly tender. We did perform an ultrasound of the groin this morning that came back negative for pseudoaneurysm. Overall the patient is feeling well, she denies any chest discomfort and her breathing is stable. Blood pressure 136/84 with a heart rate in the 70s, 90% on room air. White blood cell count 9.1, hemoglobin 11.3, platelet count 197. Sodium 142, potassium 4.3, BUN 17, creatinine 1.0. Objective - Vital Signs Vital signs: Vital Signs Temp 98 F 04/01/18 11:52 Pulse 52 L 04/01/18 11:52 Resp 20 04/01/18 11:52 BP 136/85 04/01/18 11:52 Pulse Ox 98 04/01/18 11:52 Intake & Output 03/31/18 04/01/18 04/01/18 18:59 06:59 18:59 Intake Total 595 670 Output Total 103 Balance 492 670 Weight 88.6 kg Intake: IV 0 Sodium Chloride 0.9% 1, 0 000 ml @ 100 mls/hr IV . Q10H [facility] Rx#:[id number] Intake, IV Titration 120 Amount Heparin Sod,Pork in 0.45% 120 NaCl 25,000 unit In 0.45 % NaCl 1 250ml.bag @ 11. 014 UNITS/KG/HR 10 mls/hr IV .Q24H [facility] Rx#: [id number] Oral 595 550 Output: Urine 100 Stool 3 Other: Voiding Method Toilet Toilet # Voids 100 2 - Exam PHYSICAL EXAMINATION: GENERAL: 77-year-old female in no acute distress at the time of my examination HEENT: Head is atraumatic, normocephalic. Pupils equal, round. Sclera anicteric. Conjunctiva are clear. Mucous membranes of the mouth are moist. Neck is supple. There is no elevated jugular venous pressure. No carotid bruit is heard. HEART EXAMINATION: Heart S1, S2 normal. No murmur or gallop heard. CHEST EXAMINATION: Lungs are clear to auscultation and precussion. No chest wall tenderness is noted on palpation or with deep breathing. ABDOMEN: Soft, nontender. Bowel sounds are heard. No organomegaly noted. EXTREMITIES: 2+ peripheral pulses with no evidence of peripheral edema and no calf tenderness noted. Right groin has some mild ecchymosis, no hematoma, no bruit heard. NEUROLOGIC patient is awake, alert and oriented 3 . . - Labs CBC & Chem 7: 04/01/18 07:10 04/01/18 07:10 Labs: Abnormal Lab Results - Last 24 Hours (Table) 04/01/18 04/01/18 Range/Units 07:10 07:10 Hgb 11.3 L (11.4-16.0) gm/dL Chloride 111 H (98-107) mmol/L Creatinine 1.05 H (0.52-1.04) mg/dL AST 55 H (14-36) U/L Albumin 3.4 L (3.5-5.0) g/dL Assessment and Plan Plan: Assessment and plan #[address] elevation myocardial infarction, status post angioplasty and stenting of the circumflex with staged angioplasty of the right coronary artery with stent placement. #2 history of prior CVA #3 hypertension #4 hyperlipidemia #5 history of thyroid cancer #6 history of Sjogren's Plan An ultrasound of the groin was performed today because of mild swelling and some bruising noted at the groin through the night last night. There is no evidence of any pseudoaneurysm. Patient may be able to be discharged home today. She will follow-up with her biological plant operator Dr. Byrnes on discharge. Discharge medications include aspirin 81 mg daily, Lipitor 80 mg daily, Plavix 75 mg daily, Synthroid, metoprolol 25 mg one tablet by mouth twice a day, Prinivil 2.5 mg daily, and sublingual nitroglycerin as needed for chest pain. DNP note has been reviewed, I agree with a documented findings and plan of care. Patient was seen and examined.
[2018-04-01] MEDS ORDERED: LISINOPRIL 2.5 MG TAB PO SCH (12:45)
--- NOTE | 2018-04-02 07:23 | DS ---
DISCHARGE SUMMARY DATE OF SERVICE: 04/01/2018 FINAL DIAGNOSES: 1. Acute ST-segment elevation myocardial infarction, status post cardiac stents and stenting of the circumflex as well as RCA. 2. Increased AST, ALT. 3. Hepatitis of undetermined origin. 4. Bradycardia. 5. History of cerebrovascular accident, transient ischemic attack. 6. Hypertension. 7. Hyperlipidemia. 8. History of thyroid cancer history. 9. History of Sjogren's. 10.History of mild hyponatremia. DISCHARGE DISPOSITION: The patient will be discharged in a stable condition with guarded prognosis. HISTORY OF PRESENT ILLNESS: This is a 77-year-old woman with a past medical history of multiple medical problems admitted with acute ST elevation myocardial infarction. The patient had cardiac history of stenting of the circumflex and as well as RCA. Patient improved significantly. Patient also had oozing from the right groin, but ultrasound showed no evidence of any pseudoaneurysm. A 2D echo with Doppler showed ejection fraction 60%- 65%. Patient improved significantly. On exam, vital signs are stable. CARDIOVASCULAR SYSTEM: S1, S2. ABDOMEN: Soft. NERVOUS SYSTEM: No focal deficits. The patient will be discharged in a stable condition with guarded prognosis. Diet is cardiac diet. Activity limited until followup. Follow up with Dr. Kerr in 2-3 days. Follow up with Cardiology as recommended. MEDICATIONS ARE FOLLOWS:: 1. Aspirin 81 mg p.o. b.i.d. 2. Folbic 1 p.o. daily. 3. Vitamin B2 fifty thousand units Thursday. 4. Synthroid 100 mg p.o. daily. 5. Lipitor 80 mg daily. 6. Plavix 75 mg p.o. daily. 7. Zestril 2.5 mg daily. 8. Lopressor 25 mg b.i.d. 9. Nitrostat 0.4 mg sublingual p.r.n. Once again, the patient will be discharged in a stable condition with guarded prognosis. MMODL / IJN: [id number] /
== END 2018-04-01 14:27 | disposition home or self-care (01) | DRG 247 ==
LOC: EC 19:20 → 3SCARD 19:37 → 2SICU 20:35 → 3SCARD 03-31 17:16
PROVIDERS: ADMIT Hospitalist; ATTEND Hospitalist
PROC: 4A023N7 Measurement of Cardiac Sampling and Pressure, Left Heart, Percutaneous Approach (ICD-10-PCS; 2018-03-28)
PROC: B2111ZZ Fluoroscopy of Multiple Coronary Arteries using Low Osmolar Contrast (ICD-10-PCS; 2018-03-28)
PROC: 027034Z Dilation of Coronary Artery, One Artery with Drug-eluting Intraluminal Device, Percutaneous Approach (ICD-10-PCS; principal; 2018-03-28 19:58)
PROC: 027034Z Dilation of Coronary Artery, One Artery with Drug-eluting Intraluminal Device, Percutaneous Approach (ICD-10-PCS; 2018-03-30)
DX: I21.19 ST elevation (STEMI) myocardial infarction involving other coronary artery of inferior wall (principal); E87.1 Hypo-osmolality and hyponatremia; R00.1 Bradycardia, unspecified; K75.9 Inflammatory liver disease, unspecified; M35.00 Sjogren syndrome, unspecified; I25.10 Atherosclerotic heart disease of native coronary artery without angina pectoris; I10 Essential (primary) hypertension; E78.5 Hyperlipidemia, unspecified; Z79.890 Hormone replacement therapy; Z79.82 Long term (current) use of aspirin; Z79.899 Other long term (current) drug therapy; Z86.73 Personal history of transient ischemic attack (TIA), and cerebral infarction without residual deficits; Z85.850 Personal history of malignant neoplasm of thyroid; Z88.1 Allergy status to other antibiotic agents; Z91.041 Radiographic dye allergy status; Z91.012 Allergy to eggs; Z91.040 Latex allergy status; Z88.0 Allergy status to penicillin; Z88.2 Allergy status to sulfonamides; Z88.8 Allergy status to other drugs, medicaments and biological substances; Z91.018 Allergy to other foods
CPT/HCPCS: 36415; 71045; 80053; 80061; 82550; 82553; 83735; 84439; 84443; 84484; 85025; 85049; 85610; 85730; 93005; 93306; 93458; 93975; 96374; 96375; 99285; C1874

== ENCOUNTER → 2019-08-29 | Outpatient (CLI) | payer MEDICARE ==
--- NOTE | 2019-08-29 11:01 | FL ---
EXAMINATION TYPE: FL UGI DATE OF EXAM: 08/29/2019 COMPARISON: NONE HISTORY: 79-year-old female GERD TECHNIQUE: A double contrast UGI study is performed. Total fluoroscopy time: 1 minute 49 seconds. Total images: 36 FINDINGS: The esophagus shows blunted secondary peristaltic waves with some delayed clearance from the esophagu s when the patient is supine and mild tertiary peristaltic waves. There is normal course. No mucosal abnormality or filling defect or fixed narrowing is identified. There is a small to moderate size hiatal hernia. Severe gastroesophageal reflux is demonstrated up to the thoracic inlet with Valsalva maneuver. The stomach shows normal distensibility, peristalsis, and mucosal folds. No evidence of any mass or ulcer disease The duodenal bulb, sweep, and proximal small bowel loops are unremarkable. IMPRESSION: Small to moderate sized hiatal hernia with severe gastroesophageal reflux up to the thoracic inlet. S ome blunting of the secondary stripping waves allowing for prolonged pooling of contrast in the esoph shima when the patient is supine. Otherwise, no additional abnormality on upper GI examination.
== END | disposition home or self-care (01) ==
LOC: RADUSWWP 09:51
PROVIDERS: ATTEND Internal Medicine Gastroenterology
DX: K44.9 Diaphragmatic hernia without obstruction or gangrene (principal); K21.9 Gastro-esophageal reflux disease without esophagitis
CPT/HCPCS: 74240

== ENCOUNTER → 2020-03-07 | Outpatient (CLI) | payer MEDICARE ==
[2020-03-07 11:08] LABS: HCT 38.8 % (34.0-46.0); HGB 12.8 gm/dL (11.4-16.0); MCH 28.6 pg (25.0-35.0); MCHC 32.9 g/dL (31.0-37.0); Mean Platelet Volume 7.1; Platelet Count 211 k/uL (150-450); RBC 4.46 m/uL (3.80-5.40); RDW 13.4 % (11.5-15.5); WBC 6.4 k/uL (3.8-10.6)
[2020-03-07 11:16] LABS: Magnesium 1.9 mg/dL (1.6-2.3); Potassium 4.7 mmol/L (3.5-5.1)
== END | disposition home or self-care (01) ==
LOC: LABPAT 10:06
PROVIDERS: ATTEND Internal Medicine Clinical Cardiac Electrophysiology
DX: Z01.818 Encounter for other preprocedural examination (principal); I42.1 Obstructive hypertrophic cardiomyopathy
CPT/HCPCS: 82565; 83735; 84132; 84443; 84520; 85027

== ENCOUNTER → 2020-03-12 | Day surgery (SDC) | payer MEDICARE ==
[2020-03-08 16:02] VITALS: BMI 37.0
[~2020-03-12] MED LIST: CLINDAMYCIN 900 MG in DEXTROSE 5% IN WATER 50 ML IVPB PRN; LIDOCAINE 1% INJ 10MG/ML (20 ML MDV) ONE; LIDOCAINE 1% INJ 10MG/ML (20 ML MDV) SQ ONE; SODIUM CHLORIDE 0.9% 1,000 ML IV SCH; SODIUM CHLORIDE 0.9% 500 ML 500 ML IV ONE
[2020-03-12 11:08] VITALS: BP 209/91; RESP 16; TEMP 97.6
--- NOTE | 2020-03-12 12:31 | P.EPPROC ---
- EP Procedure Note Electrophysiology Procedure Note: Loop monitor implant Primary physicians: Dr. Kerr Auto Parts Clerk: Dr. Kerr Indication: History of embolic CVA with secondary hemorrhagic conversion, rule out atrial fibrillation, currently on dual antiplatelet therapy Patient was brought to the EP lab in a fasting state. Written informed consent was obtained prior to the procedure. The left pectoral area was prepped and draped per protocol. Intravenous antibiotic was administered preoperatively. A subcutaneous Loop monitor was implanted successfully and the wound was closed per protocol. The device was programmed to detect significant guilherme- arrhythmic and tachy-arrhythmic events, per protocol. Device and programming details: Atrial fibrillation/atrial tachycardia protocol Patient underwent EP procedure under conscious sedation/moderate sedation, monitoring of the level of consciousness and physiologic parameters including but not limited to vital signs and oxygenation. Patient tolerated the procedure well without any acute complications. Start time: 1129 Stop time: 1141
--- NOTE | 2020-03-12 12:35 | P.PRLE ---
RE: Halima Flores Dear [ ], Dear Lita She'll he underwent implantation of loop monitor for evaluation of her history of CVA, embolic with secondary hemorrhagic conversion. She is currently on valsartan 160 mg twice daily and at home her blood pressure runs in the 140s systolic If her blood pressure is still elevated beyond that then diuretics may be added. She is intolerant to amlodipine RF I will keep you posted on any new developments, particularly any detection of silent atrial fibrillation or atrial flutter. Thank you for entrusting me with the care of the patient Warm regards Sincerely Suhail Kerr
[2020-03-12 14:16] VITALS: PULSE 60
== END ==
LOC: CATHEP 10:23
PROVIDERS: ATTEND Internal Medicine Clinical Cardiac Electrophysiology
DX: R00.2 Palpitations (principal); R06.09 Other forms of dyspnea; I51.7 Cardiomegaly; R07.9 Chest pain, unspecified; Z86.73 Personal history of transient ischemic attack (TIA), and cerebral infarction without residual deficits; I25.10 Atherosclerotic heart disease of native coronary artery without angina pectoris; I10 Essential (primary) hypertension; Z95.5 Presence of coronary angioplasty implant and graft; M21.379 Foot drop, unspecified foot; R60.0 Localized edema; E78.5 Hyperlipidemia, unspecified; Z79.82 Long term (current) use of aspirin; Z79.890 Hormone replacement therapy; Z79.899 Other long term (current) drug therapy; Z88.4 Allergy status to anesthetic agent; Z88.1 Allergy status to other antibiotic agents; Z88.0 Allergy status to penicillin; Z88.2 Allergy status to sulfonamides; Z88.8 Allergy status to other drugs, medicaments and biological substances; Z91.048 Other nonmedicinal substance allergy status
CPT/HCPCS: 33285; C1764; J2001

== ENCOUNTER 2021-08-02 08:22 | Day surgery (SDC) | payer MEDICARE ==
[2021-07-31 14:59] VITALS: BMI 37.8
[~2021-08-02 08:22] MED LIST changes: -CLINDAMYCIN 900 MG in DEXTROSE 5% IN WATER 50 ML IVPB PRN; +LACTATED RINGERS 1,000 ML IV SCH; -LIDOCAINE 1% INJ 10MG/ML (20 ML MDV) ONE; -LIDOCAINE 1% INJ 10MG/ML (20 ML MDV) SQ ONE; -SODIUM CHLORIDE 0.9% 1,000 ML IV SCH; -SODIUM CHLORIDE 0.9% 500 ML 500 ML IV ONE
[2021-08-02 08:44] VITALS: TEMP 97.5
[2021-08-02] MEDS ORDERED: MIDAZOLAM 2 MG/2 ML VIAL ONE (09:17)
[2021-08-02] MEDS ORDERED: fentaNYL (PF) 50 MCG/ML 2 ML AMP ONE (09:17)
--- NOTE | 2021-08-02 09:49 | P.PCN ---
Date of Procedure: 08/02/21 Procedure(s) Performed: BRIEF HISTORY: Patient is a 81-year-old pleasant female scheduled for an elective colonoscopy as a part of evaluation of prior history of colon polyps. PROCEDURE PERFORMED: Colonoscopy with snare polypectomy. PREOPERATIVE DIAGNOSIS: History of colon polyps. IV sedation per Anesthesia. PROCEDURE: After informed consent was obtained, the patient, was brought into the endoscopy unit. IV sedation was administered by Anesthesia under continuous monitoring. Digital rectal examination was normal. Initially the Olympus CF-160 flexible video colonoscope was then inserted in the rectum, gradually advanced into the cecum without any difficulty. Careful examination was performed as the scope was gradually being withdrawn. Ileocecal valve and the appendiceal orifice were visualized and appeared normal. Prep was excellent. Mucosa of the cecum, ascending colon, normal. In the transverse colon there was a 5 mm sessile polyp removed by snare polypectomy. Rest of the transverse colon, descending colon, sigmoid colon, and rectum appeared normal. At her sigmoid diverticulosis seen. Retroflexion was performed in the rectum and no lesions were seen. The patient tolerated the procedure well. IMPRESSION: 5 mm transverse colon polyp status post polypectomy Scattered sigmoid diverticulosis RECOMMENDATIONS: Findings of this examination were discussed with the patient as her family. She was advised to follow with the biopsy results. Continue with a high-fiber diet.. Do not recommend any further screening colonoscopy at her age.
[2021-08-02 09:55] VITALS: RESP 16
[2021-08-02 10:08] VITALS: BP 149/71; PULSE 64
== END 2021-08-02 10:48 | disposition home or self-care (01) ==
LOC: ORWHC2ENDO 08:22
PROVIDERS: ATTEND Internal Medicine Gastroenterology
DX: D12.3 Benign neoplasm of transverse colon (principal); K57.30 Diverticulosis of large intestine without perforation or abscess without bleeding; I25.2 Old myocardial infarction; I25.10 Atherosclerotic heart disease of native coronary artery without angina pectoris; I10 Essential (primary) hypertension; E78.5 Hyperlipidemia, unspecified; Z95.1 Presence of aortocoronary bypass graft; Z86.711 Personal history of pulmonary embolism; Z86.73 Personal history of transient ischemic attack (TIA), and cerebral infarction without residual deficits; K21.9 Gastro-esophageal reflux disease without esophagitis; Z79.02 Long term (current) use of antithrombotics/antiplatelets; Z86.010 Personal history of colon polyps; Z79.01 Long term (current) use of anticoagulants; Z79.899 Other long term (current) drug therapy
CPT/HCPCS: 45385; 88305; J2250; J3010

== ENCOUNTER → 2021-10-01 | Outpatient (CLI) | payer MEDICARE ==
[2021-10-01 22:21] LABS: HGB 12.3 g/dL (12.0-15.0); MCH 26.9 pg (27.0-32.0); MCHC 31.5 g/dL (32.0-37.0); MCV 85.3 fL (80.0-97.0); Mean Platelet Volume 10.4 fL (9.5-12.2); NRBC Per 100 WBC 0 /100 WBCS (0.0-0.0); Platelet Count 242 X 10*3/uL (140-440); RBC 4.57 X 10*6/uL (4.10-5.20); RDW 13.9 % (11.5-14.5); WBC 6.43 X 10*3/uL (4.50-10.00)
[2021-10-01 22:28] LABS: African American GFR (CKD) 54.5 (60.0-200.0); Anion Gap 13.4 mmol/L (10.00-18.00); Carbon Dioxide 23.6 mmol/L (20.0-27.5); Potassium 4.7 mmol/L (3.5-5.5)
== END | disposition home or self-care (01) ==
LOC: LABPAT 14:00
PROVIDERS: ATTEND Internal Medicine Interventional Cardiology
DX: Z01.812 Encounter for preprocedural laboratory examination (principal); R94.39 Abnormal result of other cardiovascular function study
CPT/HCPCS: 80051; 82565; 84520; 85027

== ENCOUNTER 2021-10-08 09:42 | Day surgery (SDC) | payer MEDICARE ==
[2021-10-02 15:49] VITALS: BMI 37.8
[~2021-10-08 09:42] MED LIST changes: +ALPRAZolam 0.25 MG TAB PO PRN; +ALPRAZolam 0.5 MG TAB PO PRN; +ASPIRIN 325 MG TAB PO ONE; +ATORVASTATIN 80 MG TAB PO ONE; +HEPARIN SODIUM,PORCINE 10,000 UNIT in SODIUM CHLORIDE 0.9% 1,000 ML IRRIGATION PRN; +HEPARIN SODIUM,PORCINE 2,500 UNIT in SODIUM CHLORIDE 0.9% 250 ML IRRIGATION PRN; -LACTATED RINGERS 1,000 ML IV SCH; +NITROGLYCERIN SL TABS 0.4 MG TAB SUBLINGUAL PRN; +SODIUM CHLORIDE 0.9% 1,000 ML in EMPTY BAG 1 BAG IV SCH
[2021-10-08] MEDS ORDERED: SODIUM CHLORIDE 0.9% 1,000 ML IV ONE (09:58)
[2021-10-08 10:33] VITALS: RESP 16; TEMP 98.1
[2021-10-08] MEDS ORDERED: VERAPAMIL 2.5 MG/ML 2 ML AMP ONE (10:58)
[2021-10-08] MEDS ORDERED: fentaNYL (PF) 50 MCG/ML 2 ML AMP ONE (12:02)
[2021-10-08] MEDS ORDERED: HEPARIN SODIUM 1,000 UN/ML (10ML VL) ONE (12:02)
[2021-10-08] MEDS ORDERED: MIDAZOLAM 2 MG/2 ML VIAL IV ONE (12:18)
[2021-10-08] MEDS ORDERED: LIDOCAINE 1% INJ 10MG/ML (5 ML VIAL-PF) SQ ONE (12:20)
[2021-10-08] MEDS ORDERED: LIDOCAINE 1% INJ 10MG/ML (30 ML VIAL-PF) SQ ONE (12:24)
[2021-10-08] MEDS ORDERED: IOPAMIDOL-370 125ML BTL INJ ONE (12:40)
[2021-10-08] MEDS ORDERED: RX INFO: IV CONTRAST WAS GIVEN 1 EACH MISC MISCELLANE PRN (12:41)
[2021-10-08] MEDS ORDERED: SODIUM CHLORIDE 0.9% 1,000 ML IV SCH (12:45)
--- NOTE | 2021-10-08 12:46 | P.PCN ---
Date of Procedure: 10/08/21 Operative Findings: CARDIAC CATHETERIZATION PERFORMING PHYSICIAN: Bandar Ortega MD, RPVI PROCEDURE PERFORMED: 1. Selective right and left coronary angiogram 2. Left heart catheterization INDICATION: This is an 81-year-old female patient was known CAD and prior stenting of the LCx and RCA was experiencing symptoms of shortness of breath. She underwent myocardial perfusion imaging stress test that revealed anterolateral ischemia. In the light of that heart catheterization was advised COMPLICATION: None APPROACH: Right common femoral artery LEVEL OF SEDATION: Moderate to sedation length of 20 minutes PROCEDURE DESCRIPTION: After obtaining an informed consent, the patient was brought to cardiac process laboratory specialist. Local anesthesia was performed using lidocaine subcutaneously. The right common femoral artery was cannulated using Seldinger technique, the guidewire passed easily, following that we advanced a 6 Dominican sheath dilator assembly, the wire and dilator were removed and sheath was flushed. Selective right and left coronary angiogram using a 6-Dominican JR4 and JL catheters. Following that we did left heart catheterization using 6-Dominican pigtail [address] ter. The procedure was completed there was no complication. SELECTIVE CORONARY ANGIOGRAM: The right coronary artery: Is a large caliber vessel and a dominant vessel. The ostial RCA has a lesion appeared to be in the range of 50%. The RCA otherwise appears to be free from any high-grade stenosis. The distal RCA stent is patent Left main: Is angiographically normal. Bifurcates into a LCx and LAD The left circumflex: Is a large caliber vessel nondominant vessel. The proximal LCx is angiographically normal. Gives rise to first and second obtuse marginal branches both appeared to be angiographically normal. The circumflex distally is a stented and the stent is widely patent. The left anterior descending artery: Is a large caliber vessel. The LAD is angiographically normal. Gives rise into a large diagonal branch which appears to have mild disease only. HEMODYNAMICS: The LVEDP was 12 mmHg was no significant gradient across aortic valve CONCLUSION: 1. Patent stent in the distal RCA 2. Patent stent in the distal LCx 3. Mild disease involving the first diagonal branch of the LAD 4. Normal left-sided filling pressure POSTPROCEDURE MANAGEMENT: Medical treatment and follow-up with Dr. Kerr
[2021-10-08 18:39] VITALS: BP 154/79; PULSE 58
== END 2021-10-08 19:06 | disposition home or self-care (01) ==
LOC: CATHCVL 09:42
PROVIDERS: ATTEND Internal Medicine Interventional Cardiology
DX: I25.110 Atherosclerotic heart disease of native coronary artery with unstable angina pectoris (principal); I10 Essential (primary) hypertension; E78.5 Hyperlipidemia, unspecified; R94.39 Abnormal result of other cardiovascular function study; E78.00 Pure hypercholesterolemia, unspecified; Z20.822 Contact with and (suspected) exposure to COVID-19; Z95.5 Presence of coronary angioplasty implant and graft; Z86.73 Personal history of transient ischemic attack (TIA), and cerebral infarction without residual deficits; Z86.718 Personal history of other venous thrombosis and embolism; Z79.01 Long term (current) use of anticoagulants; Z79.02 Long term (current) use of antithrombotics/antiplatelets; Z79.899 Other long term (current) drug therapy; Z79.890 Hormone replacement therapy; Z91.040 Latex allergy status; Z88.0 Allergy status to penicillin; Z88.2 Allergy status to sulfonamides; Z88.8 Allergy status to other drugs, medicaments and biological substances; Z91.048 Other nonmedicinal substance allergy status
CPT/HCPCS: 93458; 87635; C1769; C1894; J2250; J2001 ×2; Q9967

== ENCOUNTER → 2022-11-03 | Day surgery (SDC) | payer MEDICARE ==
[2022-11-03] MEDS: THYROTROPIN ALFA 1.1 MG VIAL IM NR (12:52)
[2022-11-03 13:23] VITALS: RESP 16
[2022-11-04] MEDS: THYROTROPIN ALFA 1.1 MG VIAL IM NR (12:34)
[2022-11-04 12:47] VITALS: BP 144/65; PULSE 57; TEMP 97.7
--- NOTE | 2022-11-11 17:57 | NM ---
EXAMINATION TYPE: NM I-131 Whole Body Imaging DATE OF EXAM: 11/07/2022 Comparison: None Clinical History: 82-year-old female with history of malignant neoplasm of thyroid gland TECHNIQUE: Following the oral administration of 3.98 mCi I-131 on 11/05/2022, whole body scan was perf ormed 2 days after radiotracer administration. FINDINGS: There is physiologic uptake within the salivary glands, nasopharynx, stomach, colon, and bladder. No abnormal tracer activity is seen throughout the body. IMPRESSION: No evidence for metastatic disease in the body.
== END ==
LOC: RADNMMAIN 12:01
PROVIDERS: ATTEND Internal Medicine Endocrinology, Diabetes & Metabolism
DX: C73 Malignant neoplasm of thyroid gland (principal)
CPT/HCPCS: 96372; J3240

== ENCOUNTER → 2022-12-13 | Outpatient (CLI) | payer MEDICARE ==
--- NOTE | 2022-12-18 11:58 | PE ---
EXAMINATION TYPE: PET CT fusion skull to thigh DATE OF EXAM: 12/13/2022 COMPARISON: None Prior PET/CT: No prior PET/CT HISTORY: Thyroid cancer TECHNIQUE: Following the intravenous administration of 13.00 mCi of F-18 FDG, whole body images are performed from the skull base to the midthigh. Images are reviewed on the computer in the coronal, a xial, and sagittal planes. Reconstructed rotating images are created on independent workstation and reviewed on the computer. A localization and attenuation correction CT is performed in conjunction with the PET scan. DLP: 489.70 mGycm SCAN: Subsequent Blood glucose: 97 mg/dL Average Mediastinum SUV: Average Liver SUV: FINDINGS: HEAD and NECK: No suspicious uptake evident. Some mild uptake may be in the prevertebral space near t he level of the larynx. NECK: There is some increased uptake at the level of vocal cords which can be related to inflammatio n. This area appears to correlate with the head and neck mild uptake. THORAX: No suspicious uptake ABDOMEN: No suspicious uptake PELVIS: No suspicious uptake OSSEOUS STRUCTURES: No suspicious uptake LOCALIZATION CT: The thyroid is not identified compatible with prior excision. No suspicious recurren t mass is evident. Small hiatal hernia is present. COMPARISON: None IMPRESSION: 1. No suspicious focal hyperintensity to suggest recurrent or metastatic thyroid cancer. 2. Small hiatal hernia
== END | disposition home or self-care (01) ==
LOC: RADPETMAIN 11:53
PROVIDERS: ATTEND Internal Medicine Endocrinology, Diabetes & Metabolism
DX: C73 Malignant neoplasm of thyroid gland (principal); K44.9 Diaphragmatic hernia without obstruction or gangrene
CPT/HCPCS: 78815; A9552

== ENCOUNTER → 2023-09-09 | Outpatient (CLI) | payer MEDICARE ==
[2023-09-09 18:07] LABS: Basophils # (A) 0.05 X 10*3/uL (0.00-0.10); Eosinophils # (A) 0.06 X 10*3/uL (0.04-0.35); Eosinophils % (A) 1.2 %; HCT 38.3 % (37.2-46.3); HGB 11.7 g/dL (12.0-15.0); Lymphocytes # (A) 1.49 X 10*3/uL (0.90-5.00); Lymphocytes % (A) 28.7 %; MCH 26.5 pg (27.0-32.0); MCHC 30.5 g/dL (32.0-37.0); MCV 86.7 FL (80.0-97.0); Monocytes # (A) 0.51 X 10*3/uL (0.20-1.00); Monocytes % (A) 9.8 %; NRBC Per 100 WBC 0 X 10*3/uL (0.00-0.01); Neutrophils # (A) 3.08 X 10*3/uL (1.80-7.70); Neutrophils % (A) 59.1 %; Platelet Count 232 X 10*3/uL (140-440); RBC 4.42 X 10*6/uL (4.10-5.20); RDW 14.1 % (11.5-14.5)
[2023-09-09 18:31] LABS: Erythrocyte Sedimentation Rate 24 mm/Hr (0-30)
[2023-09-09 18:44] LABS: ALT 14 U/L (8-44); AST 30 U/L (13-35); Albumin 4.3 g/dL (3.8-4.9); Albumin/Globulin Ratio 1.72 Ratio (1.60-3.17); Alkaline Phosphatase 68 U/L (41-126); BUN/Creat Ratio 10.09 Ratio (12.00-20.00); Blood Urea Nitrogen 11.1 mg/dL (9.0-27.0); C Reactive Protein <0.30 mg/dL (0.00-0.80); Calcium 9.2 mg/dL (8.7-10.3); Carbon Dioxide 22.2 mmol/L (21.6-31.8); Chloride 105 mmol/L (96-109); Chol/HDL Ratio 2.51 Ratio; Globulin 2.5 g/dL (1.6-3.3); Glucose 97 mg/dL (70-110); LDL Cholesterol,Calculated 72.1 mg/dL (0.0-131.0); Potassium 4.1 mmol/L (3.5-5.5); Rheumatoid Factor, Qnt <15 IU/mL (0-15); Sodium 141 mmol/L (135-145); T4, Free (Free Thyroxine) 1.48 ng/dL (0.80-1.80); Total Bilirubin 0.4 mg/dL (0.3-1.2); Total Protein 6.8 g/dL (6.2-8.2); VLDL Calculation 18.72 mg/dL (5.00-40.00)
[2023-09-10 13:09] LABS: HLA B27 NEGATIVE
== END | disposition home or self-care (01) ==
LOC: LABWHC1 11:56
PROVIDERS: ATTEND Family Medicine
DX: C73 Malignant neoplasm of thyroid gland (principal); I10 Essential (primary) hypertension; M35.00 Sjogren syndrome, unspecified; E55.9 Vitamin D deficiency, unspecified
CPT/HCPCS: 36415; 80053; 80061; 82306; 84432; 84439; 84443; 85025; 85652; 86038; 86140; 86235; 86431; 86812